=== PATIENT | female | born 1945 | race Caucasian/White ===

== ENCOUNTER → 2016-12-25 | Outpatient (CLI) | payer OTHER, BC | LOC: MOB LAB 10:02 | DX: E11.9 Type 2 diabetes mellitus without complications (principal) | CPT/HCPCS: 36415; 83036 ==

== ENCOUNTER → 2017-04-24 | Outpatient (CLI) | payer OTHER, BC ==
[2017-04-24 15:44] LABS: HEMOGLOBIN A1C 9.69 % (4.2-6.0)
== END ==
LOC: MOB LAB 11:28
DX: E03.9 Hypothyroidism, unspecified (principal); E11.9 Type 2 diabetes mellitus without complications; N20.0 Calculus of kidney; K21.9 Gastro-esophageal reflux disease without esophagitis; E55.9 Vitamin D deficiency, unspecified; E78.5 Hyperlipidemia, unspecified; E66.9 Obesity, unspecified; G47.30 Sleep apnea, unspecified; Z87.440 Personal history of urinary (tract) infections
CPT/HCPCS: 36415; 83036; 84443

== ENCOUNTER 2018-09-17 23:46 | Inpatient (IN) ==
[2018-09-18] MEDS ORDERED: Sodium Chloride 0.9% 1,000 ML PRIMARY IV ONE ×3 (00:25→05:46)
--- NOTE | 2018-09-18 00:46 | EKG ---
[address] [place] [address] Measurements Intervals [place] Rate: 76 P: 257 [place]: 236 QRS: -62 QRSD: 162 T: 5 QT: 449 QTc: 479 Interpretive Statements SINUS RHYTHM WITH FIRST DEGREE AV BLOCK RIGHT BUNDLE BRANCH BLOCK [120+ ms QRS DURATION, UPRIGHT V1, 40+ ms S IN I/aVL/V4/V5/V6] LEFT ANTERIOR FASCICULAR BLOCK [QRS AXIS <= -45, QR IN I, RS IN II] Compared to ECG 08/10/2014 15:39:30 First degree AV block now present Right bundle-branch block now present Left anterior fascicular block now present Right-axis deviation no longer present Intraventricular conduction delay no longer present T-wave abnormality no longer present Possible ischemia no longer present Electronically Signed On 09-18-18 09:43:45 MST by Rafita Rg MD [email or web address]
[2018-09-18 01:16] LABS: BASOPHILS # (AUTO) 0.06 10*3/UL; BASOPHILS % (AUTO) 0.6 % (0-1); EOSINOPHILS # (AUTO) 0.42 10*3/UL; EOSINOPHILS % (AUTO) 4.2 % (0-8); Hematocrit [HCT] 46.9 % (37.0-47.0); Hemoglobin [HGB] 16.1 g/dL (12.0-16.0); LYMPHOCYTES # (AUTO) 2.24 10*3/uL; MEAN CORPUSCULAR HEMOGLOBIN 31.9 PG (27-31); MEAN CORPUSCULAR HGB CONC 34.3 g/dL (33-37); MEAN CORPUSCULAR VOLUME 92.9 FL (81-99); MEAN PLATELET VOLUME 10.4 FL (7.4-12.2); MONOCYTES # (AUTO) 0.56 10*3/UL (0.3-0.8); MONOCYTES % (AUTO) 5.7 % (5-15); NEUTROPHILS # (AUTO) 6.57 10*3/UL; NEUTROPHILS % (AUTO) 66.5 % (50-80); RED BLOOD COUNT 5.05 10^6/uL (4.20-5.40)
[2018-09-18 01:17] LABS: PLATELET MORPHOLOGY COMMENT NORMAL MORPHOLOGY (NORM); RBC MORPHOLOGY COMMENT NORMAL MORPHOLOGY (NORM); WBC MORPHOLOGY COMMENT NORMAL MORPHOLOGY (NORM)
[2018-09-18] MEDS ORDERED: ONDANSETRON 4 MG/2 ML VIAL IVP ONE (01:31)
[2018-09-18 01:32] LABS: BLOOD UREA NITROGEN 38 mg/dL (7-22); BUN/CREATININE RATIO 17.27 (6-20); SERUM ALBUMIN 3.8 g/dL (3.5-4.8)
[2018-09-18] MEDS ORDERED: ONDANSETRON 4 MG/2 ML VIAL ONE (01:39)
[2018-09-18 02:00] LABS: BILIRUBIN,URINE NEGATIVE (NEG); CLARITY,URINE CLOUDY (CLEAR); COLOR,URINE YELLOW (Y); GLUCOSE, URINE (UA) 100 mg/dL (NEG); OCCULT BLOOD,URINE MODERATE (NEG); PH,URINE 5.5 (5.0-8.5); PROTEIN,URINE >300 mg/dl (NEG); UROBILINOGEN,URINE 0.2 EU/dL (0.2)
[2018-09-18 02:01] LABS: URINE SAMPLE TYPE CATH SPECIMEN
[2018-09-18 02:02] LABS: BACTERIA,URINE MANY; WBC,URINE 25-40
[2018-09-18 02:11] LABS: VENOUS PH 7.39 (7.32-7.42)
--- NOTE | 2018-09-18 02:17 | DI ---
EXAM: CT Head Without Intravenous Contrast CLINICAL HISTORY: confusion TECHNIQUE: Axial computed tomography images of the head/brain without intravenous contrast. COMPARISON: 11/08/2013 FINDINGS: Brain: There is no acute intracranial hemorrhage. There is no evidence of acute infarct-no edema or mass effect. There are stable hypodensities scattered throughout the subcortical and periventricular white matter consistent with mild to moderate old small vessel ischemic changes. Ventricles: Unremarkable. No ventriculomegaly. Bones/joints: Unremarkable. No acute fracture. Soft tissues: Unremarkable. Sinuses: Unremarkable as visualized. No acute sinusitis. Mastoid air cells: Unremarkable as visualized. No mastoid effusion. IMPRESSION: No acute intracranial abnormality or significant interval change.
[2018-09-18 02:18] LABS: AMPHETAMINE SCREEN NEGATIVE (NEG); CANNABINOID SCREEN,URINE NEGATIVE (NEG); COCAINE SCREEN NEGATIVE (NEG); METHADONE URINE SCREEN NEGATIVE (NEG); METHAMPHETAMINES SCREEN,URINE NEGATIVE (NEG); OPIATE SCREEN,URINE NEGATIVE (NEG); URINE SPECIFIC GRAVITY - MAN 1.015
--- NOTE | 2018-09-18 02:28 | DI ---
EXAM: XR Chest, 2 Views CLINICAL HISTORY: confusion, cough Physician Notes: Tech Comments: TECHNIQUE: Frontal and lateral views of the chest. COMPARISON: 07/23/2010 FINDINGS: Lungs: The interstitium is diffusely prominent but without evidence of a focal infiltrate/area of consolidation. However, on the lateral view, there is a soft tissue density posteriorly at the mid to lower thorax- question pleural thickening. It measures approximate 12 cm in length and a maximum AP dimension of 2 cm. Pleural space: See above. Heart: Unremarkable. No cardiomegaly. Mediastinum: Unremarkable. Bones/joints: There are moderate degenerative changes of the shoulders. IMPRESSION: There is no evidence of a focal infiltrate or area of consolidation to suggest pneumonia, although viral pneumonia/atypical pneumonia cannot be excluded. On the lateral view, there is soft tissue density along the posterior hemithorax which is of uncertain etiology-possibly pleural thickening. This can be further evaluated with CT scan as clinically indicated.
--- NOTE | 2018-09-18 03:33 | PDOC ---
HPI - History of Present Illness Date of Service: 09/18/18 Time of Service: 03:27 Chief Complaint: Confusion History of Present Illness: This is a 73-year-old female with diabetes mellitus type II, morbid obesity, hypertension, amongst other medical issues, who presents by ambulance here to the emergency room after her found her on a commode at her home confused. She repetitively answers "I don't know" to questions in the emergency room. Labs suggest acute renal failure and probable UTI. The patient's provides the history. He is a very good historian and states that the patient has had significant problems with urinary tract infections in the past. In fact she apparently had a nephrectomy after an abscess developed (perinephric abscess) after the kidney was removed. She still has significant muscle damage from that procedure on the right side. She's had a history of kidney stones as well. The patient gets very confused when she has her urinary tract infections. Patient's notes that the patient got confused very suddenly tonight and she was transferring back and forth from the commode without any set purpose of what she was doing. No fevers. The patient's tried to take the temperature but the patient would not allow it. She has been taking some anti- inflammatories for osteoarthritis. She did not drink very much fluids today. The patient was nonspecific with any questions that I asked and answered "I don't know" and also answered "I got his stay here". She was not oriented to place time or situation. She was oriented to person. She was moving her extremities and her speech was intact and clear. Head CT scan was done in the emergency room it was negative. I did note reviewing her medications that she is on trimethoprim, presumably to help prevent infections. Outside, in the emergency room tonight upon noticing the patient's confusion, no other interventions or exacerbating factors were noted. Past Medical History Medical History: 1. Diabetes mellitus type II. 2. Presumably urinary incontinence on oxybutynin. 3. Morbid obesity. 4. Hypertension. 5. Hypercholesterolemia. 6. Frequent urinary tract infections status post perinephric abscess on the right. 7. Osteoarthritis Surgical History: 1. Kidney stone surgery. 2. Cholecystectomy. 3. Right nephrectomy Pertinent Family History: I cannot obtain this information from the patient due to her altered mental status and confusion Past Social History: Patient does not smoke. She is to drink alcohol but quit markedly after her nephrectomy. She is for over 40 years. 2 children described as healthy. Her states that she has a living well and that she is DO NOT RESUSCITATE. Tobacco Use: Never Smoker In the Past 12 Months, Have Used or Abuse Any of the Following Substance: None Alcohol Use: None Medication / Allergies Home Medications: Home Medications Medication Instructions Recorded Confirmed Type cholecalciferol (vitamin D3) 2,000 2,000 unit PO QDAY #30 cap 06/11/17 09/17/18 History unit capsule atenolol 50 mg tablet 50 mg PO QDAY #90 tab 11/08/17 09/17/18 Rx glipizide 10 mg tablet 10 mg PO BID #180 tab 11/08/17 09/17/18 Rx pravastatin 20 mg tablet 20 mg PO QDAY #90 tab 11/08/17 09/17/18 Rx cholecalciferol (vitamin D3) 50,000 unit PO QDAY #11 cap 11/14/17 09/17/18 Rx 50,000 unit capsule sitagliptin 50 mg-metformin 1,000 1 tab PO BID #60 tab 11/19/17 09/17/18 Rx mg tablet exenatide ER 2 mg/0.65 mL 2 mg SUBCUT Q7D #12 ea 11/20/17 09/17/18 Rx subcutaneous pen injector sitagliptin 50 mg-metformin 1,000 1 tab PO BID #180 tab 11/20/17 09/17/18 Rx mg tablet trimethoprim 100 mg tablet 100 mg PO QDAY #90 tab 02/04/18 09/17/18 Rx levothyroxine 100 mcg tablet 100 mcg PO QD #90 tab 02/05/18 09/17/18 Rx oxybutynin chloride 5 mg tablet 10 mg PO BID PRN #360 tab 02/05/18 09/17/18 Rx Allergies/Adverse Reactions: Allergies Allergy/AdvReac Type Severity Reaction Status Date / Time codeine [Codeine] AdvReac Intermediate VOMITING Verified 09/17/18 23:51 Review of Systems - Review of Systems ROS Unobtainable: Due to Mental Status (I cannot obtain a review systems due to confusion and altered mental status in the setting of urinary tract infection, present on admission, and renal failure.) Exam - Vitals Vital Signs: Vital Signs Temperature 97.6 F Temperature Source Temporal Artery Scan Pulse Rate [Pulse Oximeter] 80 Respiratory Rate 24 Blood Pressure [Left Arm] 163/104 Pulse Ox 91 Height 5 ft 9 in Weight 360 lb - General General Appearance: No Acute Distress, Morbidly Obese Additional General Exam Details: Appears ill, not toxic, belches frequently on exam - Head Head Exam: Normal Inspection, Normocephalic, Atraumatic - ENT ENT Exam: POSITIVE: Mucous Membranes Dry - Neck Neck Exam: Normal Inspection, No Tenderness, No Lymphadenopathy, No Thyromegaly, JVP is not Raised - Respiratory Respiratory Exam: POSITIVE: Clear to Auscultation - Bilaterally, Breathing Non Labored - Cardiovascular Cardiovascular Exam: POSITIVE: RRR, No Murmur, No Clicks, No Gallops, No Rubs, No JVD - GI/Abdominal GI/Abdominal Exam: POSITIVE: Normal Bowel Sounds, Non Tender, Non Distended, Soft - Rectal Rectal Exam: POSITIVE: Deferred - External Exam: POSITIVE: Deferred Additional Exam Details: I'm having the nurses place a Rene catheter. She was incontinent of urine - Extremities Extremities Exam: POSITIVE: No Clubbing Present, No Edema Present, No Cyanosis Present Additional Extremities Exam Details: Has what appeared to be some hammertoe deformities and on her right foot she has what looks like possible blood blister on one toe but it is clean and there is no evidence of any drainage or erythema. Dorsalis pedis pulses are present - Back Back Exam: POSITIVE: No CVA Tenderness Additional Back Exam Details: Has a large bulge on the right side of her flank that her tells me was related to muscle damage at the time of her nephrectomy in the past. - Neurological Neurological Exam: POSITIVE: Alert, No Facial Droop, Speech Intact / Clear, Moves All Extremities Equally, Altered Results - Labs CBC and BMP: 09/18/18 00:50 09/18/18 00:50 Additional Lab Results: Laboratory Results 09/18/18 09/18/18 09/18/18 00:50 00:50 00:50 WBC 9.89 RBC 5.05 Hgb 16.1 H Hct 46.9 MCV 92.9 MCH 31.9 H MCHC 34.3 RDW Std Deviation 44.0 RDW Coeff of Marlen 13.2 Plt Count 244 MPV 10.4 Immature Gran % (Auto) 0.4 Neut % (Auto) 66.5 Lymph % (Auto) 22.6 [place] % (Auto) 5.7 Eos % (Auto) 4.2 Baso % (Auto) 0.6 Immature Gran # (Auto) 0.04 Neut # (Auto) 6.57 Lymph # (Auto) 2.24 [place] # (Auto) 0.56 Eos # (Auto) 0.42 Baso # (Auto) 0.06 WBC Morphology Comment Normal morphology Plt Morphology Comment Normal morphology RBC Morph Comment Normal morphology VBG pH VBG pCO2 VBG HCO3 VBG Base Excess Sodium 135 Potassium 4.7 Chloride 101 Carbon Dioxide 22 L Anion Gap 12 BUN 38 H Creatinine 2.2 H Estimated GFR Tie Presser BUN/Creatinine Ratio 17.27 Glucose 224 H Calculated Osmolality 295.0 H Lactic Acid 1.7 Calcium 9.6 Magnesium 1.7 Total Bilirubin 0.5 AST 21 ALT 21 Alkaline Phosphatase 68 Total Creatine Kinase < 20 L CK-MB (CK-2) Troponin I C-Reactive Protein 0.7 Total Protein 6.7 Albumin 3.8 Globulin 2.9 Albumin/Globulin Ratio 1.30 Ur Collection Type Urine Color Urine Clarity Urine pH Ur Specific [place] U Specif Grav (Refrac) Urine Protein Urine Glucose (UA) Urine Ketones Urine Occult Blood Urine Nitrate Urine Bilirubin Urine Urobilinogen Ur Leukocyte Esterase Urine RBC Urine WBC Ur Squamous Epith Cells Ur Renal Epithelial Cell Urine Crystals Urine Bacteria Urine Casts Urine Mucus Urine Trichomonas Urine Yeast Ur Culture Indicated? Urine Opiates Screen Ur Buprenorphine Ur Oxycodone Screen Urine Methadone Screen Ur Propoxyphene Screen Barbiturate Screen U Tricyclic Antidepress Phencyclidine Screen Amphetamines Screen U Methamphetamines Scrn Benzodiazepines Screen Cocaine Screen U Marijuana (THC) Screen 09/18/18 09/18/18 09/18/18 00:50 00:50 01:55 WBC RBC Hgb Hct MCV MCH MCHC RDW Std Deviation RDW Coeff of [place] Plt Count MPV Immature Gran % (Auto) Neut % (Auto) Lymph % (Auto) [place] % (Auto) Eos % (Auto) Baso % (Auto) Immature Gran # (Auto) Neut # (Auto) Lymph # (Auto) [place] # (Auto) Eos # (Auto) Baso # (Auto) WBC Morphology Comment Plt Morphology Comment RBC Morph Comment VBG pH 7.39 VBG pCO2 36 L VBG HCO3 22 VBG Base Excess -3 L Sodium Potassium Chloride Carbon Dioxide Anion Gap BUN Creatinine Estimated GFR BUN/Creatinine Ratio Glucose Calculated Osmolality Lactic Acid Calcium Magnesium Total Bilirubin AST ALT Alkaline Phosphatase Total Creatine Kinase CK-MB (CK-2) 0.42 Troponin I < 0.012 C-Reactive Protein Total Protein Albumin Globulin Albumin/Globulin Ratio Ur Collection Type Cath specimen Urine Color Yellow Urine Clarity Cloudy A Urine pH 5.5 Ur Specific [place] 1.020 U Specif Grav (Refrac) 1.015 Urine Protein >300 A Urine Glucose (UA) 100 Urine Ketones Trace A Urine Occult Blood Moderate H Urine Nitrate Negative Urine Bilirubin Negative Urine Urobilinogen 0.2 Ur Leukocyte Esterase Moderate Urine RBC 1-3 Urine WBC 25-40 H Ur Squamous Epith Cells None Ur Renal Epithelial Cell None Urine Crystals None Urine Bacteria Many H Urine Casts None Urine Mucus None Urine Trichomonas None Urine Yeast None Ur Culture Indicated? Culture set Urine Opiates Screen Negative Ur Buprenorphine Negative Ur Oxycodone Screen Negative Urine Methadone Screen Negative Ur Propoxyphene Screen Negative Barbiturate Screen Negative U Tricyclic Antidepress Negative Phencyclidine Screen Negative Amphetamines Screen Negative U Methamphetamines Scrn Negative Benzodiazepines Screen Negative Cocaine Screen Negative U Marijuana (THC) Screen Negative - EKG Data -: EKG Interpreted by Me Rate: Normal EKG Shows Normal: Sinus Rhythm - EKG Data EKG Interpretation: Other (Right bundle branch block) - Imaging Status: Image Reviewed by Me (Chest x-ray on my view is negative for pneumonia. Head CT scan does not show evidence of a bleed.) Assessment and Plan - Patient Problems (1) Acute renal failure Current Visit: Yes Status: Acute Code(s): N17.9 - Acute kidney failure, unspecified Qualifiers: Acute renal failure type: unspecified Qualified Code(s): N17.9 - Acute kidney failure, unspecified (2) Altered mental status Current Visit: Yes Status: Acute Code(s): R41.82 - Altered mental status, unspecified Qualifiers: Altered mental status type: disorientation Qualified Code(s): R41.0 - Disorientation, unspecified (3) Urinary tract infection Current Visit: Yes Status: Acute Code(s): N39.0 - Urinary tract infection, site not specified Qualifiers: Urinary tract infection type: acute cystitis Hematuria presence: with hematuria Qualified Code(s): N30.01 - Acute cystitis with hematuria (4) Diabetes mellitus type II, controlled Current Visit: Yes Status: Acute Code(s): E11.9 - Type 2 diabetes mellitus without complications Qualifiers: Diabetes mellitus skilled nursing insulin use: without skilled nursing use Diabetes mellitus complication status: with ophthalmic complications Diabetes mellitus complication detail: with diabetic retinopathy Diabetic retinopathy severity: with unspecified retinopathy severity Diabetes mellitus macular edema: macular edema presence unspecified Laterality: unspecified laterality Qualified Code(s): E11.319 - Type 2 diabetes mellitus with unspecified diabetic retinopathy without macular edema (5) Morbid obesity Current Visit: Yes Status: Acute Code(s): E66.01 - Morbid (severe) obesity due to excess calories (6) History of nephrectomy Current Visit: Yes Status: Acute Code(s): Z90.5 - Acquired absence of kidney (7) Urinary incontinence, mixed Current Visit: Yes Status: Chronic Code(s): N39.46 - Mixed incontinence (8) Benign hypertension Current Visit: Yes Status: Chronic (9) Sleep apnea Current Visit: Yes Status: Chronic Onset Date: 05/05/14 Code(s): G47.30 - Sleep apnea, unspecified Qualifiers: (10) Hyperlipidemia Current Visit: Yes Status: Chronic Onset Date: 05/05/14 Code(s): E78.5 - Hyperlipidemia, unspecified Qualifiers: (11) GERD (gastroesophageal reflux disease) Current Visit: No Status: Resolved Onset Date: 09/25/12 Code(s): K21.9 - Gastro-esophageal reflux disease without esophagitis Qualifiers: Esophagitis presence: esophagitis presence not specified Qualified Code(s): K21.9 - Gastro-esophageal reflux disease without esophagitis - Assessment / Plan Additional Assessment/Plan Details: Admit the patient. Hydrate aggressively with IV fluids in the setting of renal failure, particularly with one kidney. Rocephin IV empirically and culture urine. Check labs in a.m. and this afternoon. Discontinue oxybutynin as this often times can cause confusion in this age range. Also stop trimethoprim. Hold oral antidiabetic medications and use insulin during the hospital stay. Urinary tract infection is present on admission. I'll check electrolytes and kidney function later this afternoon. If the kidney function is still compromised, we may need to look at getting the patient to a taker off, particularly with one kidney present. I also instructed the elizabeth tony's that the patient should not have anti-inflammatories despite her debilitating osteoarthritis as it could lead to kidney failure. She is a very poor candidate for surgery. This will need to be discussed further with the patient during the hospital stay if her confusion improves. I do not think that the patient had a stroke. She does not have any focal findings at this point. We'll see how she responds to initial interventions for urinary tract infection. Sliding scale insulin for now for diabetes. Hold off on oral medications. CT scan of the abdomen and pelvis to look for stones. Get a spot urine sodium and creatinine for fractional excretion of sodium I was able to confirm with that the patient has a living will and that she has stated DO NOT RESUSCITATE should her heart stop. Patient's agreed with plan above.
[2018-09-18] MEDS ORDERED: LIDOCAINE HCL 2 % 10 ML JELLY URO-JECT TOPICAL PRN ×3 (03:59→04:07)
[2018-09-18] MEDS ORDERED: DEXTROSE 50%-WATER SYRINGE 50 ML SYRINGE IVP PRN (04:07)
[2018-09-18] MEDS ORDERED: DEXTROSE 31 GM GEL PO PRN (04:07)
[2018-09-18] MEDS ORDERED: Glucagon Inj Vial 1 MG/ML VIAL IM PRN (04:07)
[2018-09-18] MEDS ORDERED: Insulin Sliding Scale Protocol SUBCUT PRN (04:07)
[2018-09-18] MEDS ORDERED: ACETAMINOPHEN 325 MG TABLET PO PRN (04:07)
[2018-09-18] MEDS ORDERED: DOCUSATE 100 MG CAPSULE PO PRN (04:07)
[2018-09-18] MEDS ORDERED: LIDOCAINE W/ SODIUM BICARB 0.5 ML SYR SUBD PRN (04:07)
[2018-09-18] MEDS: Sodium Chloride 0.9% 1,000 ML PRIMARY IV SCH ×3 (04:33→21:13)
[2018-09-18] MEDS: cefTRIAXone Inj 2 GM in Sodium Chloride 0.9% 100 ML IV SCH (04:36)
--- NOTE | 2018-09-18 05:00 | PDOC ---
Altered Mental Status HPI - General Chief Complaint: Altered Mental Status Stated Complaint: confusion Date Seen by Provider: 09/18/18 Time Seen by Provider: 00:10 Source: POSITIVE: Patient, Spouse, EMS Exam Limitations: POSITIVE: No limitations Nurse's Notes Reviewed & Considered: Yes EMS Report Reviewed & Considered: Verbal - History of Present Illness Initial Comments: The patient is a 73-year-old female who was brought to the emergency room by ambulance. Approximately 1-1/2 hours TELETYPESETTER the patient was in her bedroom and the patient's was in the couple's living room. The heard the patient starting and he went to check on his . She states that she found the patient on a bedside commode. The states that the patient was confused and would answer most questions simply with "I don't know". reports that the patient has had no recent known trauma. He thinks that the has been was in bed and got up to use the bedside commode. Patient has a history of diabetes mellitus and the blood glucose in the field was 184. The patient's also states that the patient had a kidney removed, but he is not sure what the indication for the nephrectomy was. The states that the patient had a similar episode of confusion in the past and at that time the patient was diagnosed with the urinary tract infection and the states that once the urinary tract infection was treated the patient's sensorium returned to normal. states that the patient's condition was normal up until this evening. No known fevers or chills. does state that the patient has had a cough for the last couple days. Body Location Affected: REPORTS: Other (Confusion as above) Timing: REPORTS: Constant Duration: 1-3 hours Severity: Moderate Quality: REPORTS: Other (Patient does not have any apparent pain anywhere) Character of AMS: REPORTS: Confused, Trouble Concentrating Context: REPORTS: Other (As above) FSBS TELETYPESETTER (Result in comment): Yes (184) Patient Normals: REPORTS: Alert, Oriented x3 Associated Symptoms: DENIES: Recent Illness, Fever, Chills, Chest Pain, Neck Pain, Back Pain, Difficulty Breathing, Abdominal Pain, Nausea, Vomiting, New Onset Weakness, Decreas. Ability to Stand, Decreased Ability to Walk, Multiple Falls, Off Balance, Fainting, Dizziness, Involuntary Movements, Seizure, Headach e, Other Similar Symptoms Previously: Yes (1 similar episode in the past, thought to be due to a urinary tract infecti) Recent Care Received: REPORTS: Denies Any Prior Injuries Related to Current Complaint?: No - Patient Home Medications Home Medications: Home Medications cholecalciferol (vitamin D3) 2,000 unit capsule 2,000 unit PO QDAY #30 cap 06/11/17 atenolol 50 mg tablet 50 mg PO QDAY #90 tab 11/08/17 glipizide 10 mg tablet 10 mg PO BID #180 tab 11/08/17 pravastatin 20 mg tablet 20 mg PO QDAY #90 tab 11/08/17 cholecalciferol (vitamin D3) 50,000 unit capsule 50,000 unit PO QDAY #11 cap 11/14/17 sitagliptin 50 mg-metformin 1,000 mg tablet 1 tab PO BID #60 tab 11/19/17 exenatide ER 2 mg/0.65 mL subcutaneous pen injector 2 mg SUBCUT Q7D #12 ea 11/20/17 sitagliptin 50 mg-metformin 1,000 mg tablet 1 tab PO BID #180 tab 11/20/17 trimethoprim 100 mg tablet 100 mg PO QDAY #90 tab 02/04/18 levothyroxine 100 mcg tablet 100 mcg PO QD #90 tab 02/05/18 oxybutynin chloride 5 mg tablet 10 mg PO BID PRN #360 tab 02/05/18 - Patient Allergies Allergies/Adverse Reactions: Allergies Allergy/AdvReac Type Severity Reaction Status Date / Time codeine [Codeine] AdvReac Intermediate VOMITING Verified 09/17/18 23:51 Past Medical History - heen HEENT History: Denies History Additional HEENT History: near sighted, wears glasses Cardiovascular History: Hyperlipidemia, Other (please comment) Additional Cardiovasular History: TACHYCARDIA Respiratory History: Denies History Gastrointestinal History: GERD Genitourinary History: Recurrent UTI Additional Genitourinary History: PATIENT STATES SHE HAD A RIGHT NEPHRECTOMY FOR "AN INFECTION AND ABSCESS" RIGHT KIDNEY Endocrine History: Type 2 Diabetes (oral) Musculoskeletal History: Arthritis Additional Musculoskeletal History: bilat knees Neurological History: Denies History Blood Disorders: Denies History Psychiatric History: Denies History History of Sexually Transmitted Diseases: No Cancer History: Denies History In Past Year Been Physically Harmed or Verbally Threatened: No History of MDRO: Yes Other Type of MDRO: NEG SWAB IN OCT History of Other Communicable Diseases: No Tobacco Use: Never Smoker Alcohol Use: None In the Past 12 Months, Have Used or Abuse Any Substance: None Previous Surgical History: Yes Type / Date of Surgery: KIDNEY Anesthesia Reactions: No Malignant Hyperthermia: No Significant Family History: No pertinent family hx Past Medical History Reviewed: Reviewed - No Changes ROS - Limitations ROS Limitations: Clinical Condition, Other (please comment) (Collateral information with regard to review of systems and past medical history obtained from patient's ) Constitution: REPORTS: Denies Symptoms Cardiovascular: REPORTS: Denies Cardiac Symptoms Respiratory: REPORTS: Cough Non Productive Neurological: REPORTS: Denies Neuro Symptoms Gastrointestinal: REPORTS: Denies GI Symptoms Endocrine: REPORTS: Denies Symptoms Musculoskeletal: REPORTS: Denies MS Symptoms Genitourinary: REPORTS: Denies Symptoms Eyes: REPORTS: Denies Symptoms ENT: REPORTS: Denies Symptoms Skin: REPORTS: Denies Skin Symptoms Lympathic: REPORTS: Denies Lympathic Symptoms Immunologic: POSITIVE: Denies Symptoms Psychiatric: POSITIVE: Denies Psych Symptoms Altered Mental Physical Exam - General Appearance General Appearance: POSITIVE: Cooperative, No Acute Distress, No Evidence of Trauma. NEGATIVE: Alert (Patient is alert to date. She cannot name the president, nor can she state where she is at. When asked questions, the patient's answers usually "I don't know ". She will perform some simple comma nds, but not uniformly. She has difficulty understanding what I ask her to squeeze my fingers. She also has difficulty understanding what I want to do what I tell her to close her eyes tightly as part of a cranial nerve examination.) - HEENT HEENT: POSITIVE: Head Inspection Nml, Eyes Inspection Nml, Ears Inspection Nml, Nose Inspection Nml, Oral/Dental Inspect. Nml, Pharynx Inspect. Nml, PERRL - Pupil Size Pupil Size: 3 mm: Bilateral (PERRLA) - Neuro/Psych Neurological: POSITIVE: Confusion, Weakness (Possibly some pronator drift on the left, but patient's inability to understand what I am trying to ask her to do impairs the validity of this test.) Cranial Nerves: POSITIVE: Normal As Tested, No Evidence of Acute CVA Cerebellar: POSITIVE: Normal As Tested Peripheral Exam: POSITIVE: Weakness (Possibly left arm). NEGATIVE: No Motor Deficits (Possibly some left pronator drift) - Neck Neck: POSITIVE: Supple, Non Tender - Respiratory Respiratory: POSITIVE: No Respiratory Distress, Breath Sounds Normal - Cardiovascular CVS: POSITIVE: Regular Rate and Rhythm, Heart Sounds Normal Peripheral Pulses: Radial (R): 2+, Radial (L): 2+ - Abdomen Abdomen: Soft: (All Quadrants), Normal Bowel Sounds: (All Quadrants), Denies Tenderness: (All Quadrants), No Splenomegaly: (All Quadrants), No Hepatomegaly: (All Quadrants), No Guarding: (All Quadrants), No Rebound: (All Quadrants), No Palpable Pulse: (All Quadrants), No Palpabale Mass: (All Quadrants), No Distention: (All Quadrants), No Rigidity: (All Quadrants) - Skin Skin: POSITIVE: Normal for Race, No Rash, Warm, Dry - Extremities Extremity: Non-Tender: (All Extremities), Normal ROM: (All Extremities), Normal Inspection: (All Extremities) Additional Extremities Details: Patient has chronic knee pain. Altered Mental Status - Results Reviewed By Me Xrays/CTs/US Reviewed: Yes Discussed with Radiologist: Yes (CT scan head without contrast read as normal by radiologist. Chest x-ray shows no infiltrate.) Lab Results Reviewed by Me: Yes (BUN 38, creatinine 2.2; on 11/08/2017 BUN was 17 and creatinine is 1.1) CBC and BMP: 09/18/18 00:50 09/18/18 00:50 Lab Results:: Laboratory Results 09/18/18 09/18/18 09/18/18 00:50 00:50 00:50 WBC 9.89 RBC 5.05 Hgb 16.1 H Hct 46.9 MCV 92.9 MCH 31.9 H MCHC 34.3 RDW Std Deviation 44.0 RDW Coeff of Marlen 13.2 Plt Count 244 MPV 10.4 Immature Gran % (Auto) 0.4 Neut % (Auto) 66.5 Lymph % (Auto) 22.6 [place] % (Auto) 5.7 Eos % (Auto) 4.2 Baso % (Auto) 0.6 Immature Gran # (Auto) 0.04 Neut # (Auto) 6.57 Lymph # (Auto) 2.24 [place] # (Auto) 0.56 Eos # (Auto) 0.42 Baso # (Auto) 0.06 WBC Morphology Comment Normal morphology Plt Morphology Comment Normal morphology RBC Morph Comment Normal morphology VBG pH VBG pCO2 VBG HCO3 VBG Base Excess Sodium 135 Potassium 4.7 Chloride 101 Carbon Dioxide 22 L Anion Gap 12 BUN 38 H Creatinine 2.2 H Estimated GFR Payroll Consultant BUN/Creatinine Ratio 17.27 Glucose 224 H Calculated Osmolality 295.0 H Lactic Acid 1.7 Calcium 9.6 Magnesium 1.7 Total Bilirubin 0.5 AST 21 ALT 21 Alkaline Phosphatase 68 Total Creatine Kinase < 20 L CK-MB (CK-2) Troponin I C-Reactive Protein 0.7 Total Protein 6.7 Albumin 3.8 Globulin 2.9 Albumin/Globulin Ratio 1.30 Ur Collection Type Urine Color Urine Clarity Urine pH Ur Specific [place] U Specif Grav (Refrac) Urine Protein Urine Glucose (UA) Urine Ketones Urine Occult Blood Urine Nitrate Urine Bilirubin Urine Urobilinogen Ur Leukocyte Esterase Urine RBC Urine WBC Ur Squamous Epith Cells Ur Renal Epithelial Cell Urine Crystals Urine Bacteria Urine Casts Urine Mucus Urine Trichomonas Urine Yeast Ur Culture Indicated? Urine Opiates Screen Ur Buprenorphine Ur Oxycodone Screen Urine Methadone Screen Ur Propoxyphene Screen Barbiturate Screen U Tricyclic Antidepress Phencyclidine Screen Amphetamines Screen U Methamphetamines Scrn Benzodiazepines Screen Cocaine Screen U Marijuana (THC) Screen 09/18/18 09/18/18 09/18/18 00:50 00:50 01:55 WBC RBC Hgb Hct MCV MCH MCHC RDW Std Deviation RDW Coeff of Marlen Plt Count MPV Immature Gran % (Auto) Neut % (Auto) Lymph % (Auto) [place] % (Auto) Eos % (Auto) Baso % (Auto) Immature Gran # (Auto) Neut # (Auto) Lymph # (Auto) [place] # (Auto) Eos # (Auto) Baso # (Auto) WBC Morphology Comment Plt Morphology Comment RBC Morph Comment VBG pH 7.39 VBG pCO2 36 L VBG HCO3 22 VBG Base Excess -3 L Sodium Potassium Chloride Carbon Dioxide Anion Gap BUN Creatinine Estimated GFR BUN/Creatinine Ratio Glucose Calculated Osmolality Lactic Acid Calcium Magnesium Total Bilirubin AST ALT Alkaline Phosphatase Total Creatine Kinase CK-MB (CK-2) 0.42 Troponin I < 0.012 C-Reactive Protein Total Protein Albumin Globulin Albumin/Globulin Ratio Ur Collection Type Cath specimen Urine Color Yellow Urine Clarity Cloudy A Urine pH 5.5 Ur Specific [place] 1.020 U Specif Grav (Refrac) 1.015 Urine Protein >300 A Urine Glucose (UA) 100 Urine Ketones Trace A Urine Occult Blood Moderate H Urine Nitrate Negative Urine Bilirubin Negative Urine Urobilinogen 0.2 Ur Leukocyte Esterase Moderate Urine RBC 1-3 Urine WBC 25-40 H Ur Squamous Epith Cells None Ur Renal Epithelial Cell None Urine Crystals None Urine Bacteria Many H Urine Casts None Urine Mucus None Urine Trichomonas None Urine Yeast None Ur Culture Indicated? Culture set Urine Opiates Screen Negative Ur Buprenorphine Negative Ur Oxycodone Screen Negative Urine Methadone Screen Negative Ur Propoxyphene Screen Negative Barbiturate Screen Negative U Tricyclic Antidepress Negative Phencyclidine Screen Negative Amphetamines Screen Negative U Methamphetamines Scrn Negative Benzodiazepines Screen Negative Cocaine Screen Negative U Marijuana (THC) Screen Negative EKG Interpreted/Reviewed By Me:: Yes (sinus rhythm; left anterior fascicular block and right bundle branch block) EKG Interpretation:: POSITIVE: Normal Sinus Rhythm, Normal Rate. NEGATIVE: Normal Intervals (Interventricular conduction delay), Normal [place] (Right bundle- branch block and left anterior fascicular block), Normal QRS (Left bundle branch block and anterior fascicular block), Normal ST/T - Patient's Progress Pain Medication Addressed: POSITIVE: Not Applicable School/Work Release Addressed: POSITIVE: Not Applicable Re-Examine Time:: 02:35 Re-Examine Comment: Condition unchanged. Blood cultures are drawn. Advised the patient's that I'm not completely sure why she is confused at this time. Catheterized urine was compatible with urinary tract infection, and this may be contributing. Case discussed with Dr. Andrew, hospitalist, and patient is admitted for further evaluation and treatment. Status: POSITIVE: Unchanged, Re-Examined - Consult Consult (If Yes, Name of Consulting MD & Time Called): Yes (Dr. Andrew, [facility], [id number]) Consulting MD will see pt:: POSITIVE: [facility] [place] Admit Counseled: POSITIVE: Patient, Family (), RE: Lab Results, RE: Radiology Results, RE: DX, RE: Need for F/U Patient Care Time - Estimated PCT Patient Care Time (In Minutes): 65 Vital Signs - Recent Vital Signs Vital Signs: Vital Signs (Last 8 hours) Temp Pulse Resp BP Pulse Ox 09/18/18 00:10 97.6 F 80 24 163/104 91 - VS Reviewed Vital Signs Reviewed: Yes Discharge Clinical Impression: Confusion, Diabetes mellitus Urinary tract infection Qualifiers: Urinary tract infection type: acute cystitis Hematuria presence: with hematuria Qualified Code(s): N30.01 - Acute cystitis with hematuria Discharge Disposition: Admit to Inpatient Condition: Good Date Decision to Admit to Inpatient: 09/18/18 Time Decision to Admit to Inpatient: 02:15
[2018-09-18] MEDS: HEPARIN 5000 UNIT/1 ML SUBCUT SCH ×3 (05:20→21:13)
[2018-09-18] MEDS ORDERED: Sodium Chloride 0.9% 1,000 ML PRIMARY IV SCH (05:36)
[2018-09-18] MEDS: HYDRALAZINE 20 MG/1 ML IVP PRN (05:56)
--- NOTE | 2018-09-18 07:58 | DI ---
CT Abdomen/Pelvis WO Contrast,09/18/2018 4:07 AM: Clinical History: Urinary tract infection and renal failure. Question stone. Previous Exam: 07/25/14 Findings: Multiple helically acquired CT images are obtained through the abdomen and pelvis without contrast, a nd demonstrate a stable right lateral hernia containing multiple loops of large and small bowel. There is a small right pleural effusion and a very small left pleural effusion. There is some mild in creased interstitial markings. The liver, spleen, pancreas and left kidney are unremarkable. The uterus is normal. The anterior abdo sarah wall and subcutaneous fat is unremarkable. There is a Rene catheter within the urinary bladder. A few peripheral vascular calcifications are seen. Diffuse degenerative changes of the spine are note d. There is diffuse osteopenia. Degenerative changes of the hips are noted as well. There is no evide nce of hydronephrosis of the solitary left kidney. Impression: No significant change from the prior exam.
[2018-09-18] MEDS ORDERED: CHOLECALCIFEROL 1000 IU TABLET PO SCH (09:00)
[2018-09-18] MEDS: CHOLECALCIFEROL 1000 IU TABLET PO SCH (10:06)
[2018-09-18] MEDS: Insulin Lispro Flexpen 300 UNIT/3 ML INSULN.PEN SUBCUT SCH ×4 (10:06→20:18)
[2018-09-18] MEDS: ATENOLOL 50 MG TABLET PO SCH (10:06)
[2018-09-18 14:46] LABS: BLOOD UREA NITROGEN 30 mg/dL (7-22); BUN/CREATININE RATIO 16.66 (6-20)
[2018-09-18] MEDS: Pravastatin Tab 20 MG TAB PO SCH (21:13)
[2018-09-19] MEDS: HEPARIN 5000 UNIT/1 ML SUBCUT SCH ×3 (04:54→20:19)
[2018-09-19] MEDS: cefTRIAXone Inj 2 GM in Sodium Chloride 0.9% 100 ML IV SCH (04:54)
[2018-09-19] MEDS: Sodium Chloride 0.9% 1,000 ML PRIMARY IV SCH ×3 (04:54→22:16)
[2018-09-19] MEDS: LEVOTHYROXINE 100 MCG TABLET PO SCH (04:55)
[2018-09-19 05:27] LABS: BASOPHILS # (AUTO) 0.06 10*3/UL; BASOPHILS % (AUTO) 0.7 % (0-1); EOSINOPHILS # (AUTO) 0.55 10*3/UL; EOSINOPHILS % (AUTO) 6.3 % (0-8); Hematocrit [HCT] 44.7 % (37.0-47.0); Hemoglobin [HGB] 14.8 g/dL (12.0-16.0); LYMPHOCYTES # (AUTO) 2.69 10*3/uL; MEAN CORPUSCULAR HEMOGLOBIN 31.4 PG (27-31); MEAN CORPUSCULAR HGB CONC 33.1 g/dL (33-37); MEAN CORPUSCULAR VOLUME 94.9 FL (81-99); MEAN PLATELET VOLUME 10.1 FL (7.4-12.2); MONOCYTES # (AUTO) 0.73 10*3/UL (0.3-0.8); MONOCYTES % (AUTO) 8.4 % (5-15); NEUTROPHILS # (AUTO) 4.64 10*3/UL; NEUTROPHILS % (AUTO) 53.4 % (50-80); RED BLOOD COUNT 4.71 10^6/uL (4.20-5.40)
[2018-09-19 05:53] LABS: BLOOD UREA NITROGEN 24 mg/dL (7-22)
[2018-09-19 06:00] LABS: PLATELET MORPHOLOGY COMMENT NORMAL MORPHOLOGY (NORM); RBC MORPHOLOGY COMMENT NORMAL MORPHOLOGY (NORM); WBC MORPHOLOGY COMMENT NORMAL MORPHOLOGY (NORM)
[2018-09-19] MEDS: Insulin Lispro Flexpen 300 UNIT/3 ML INSULN.PEN SUBCUT SCH ×4 (08:26→21:48)
[2018-09-19] MEDS: ATENOLOL 50 MG TABLET PO SCH (09:39)
[2018-09-19] MEDS: CHOLECALCIFEROL 1000 IU TABLET PO SCH (09:39)
--- NOTE | 2018-09-19 10:20 | PDOC(PROG) ---
Interval History: Patient feels much better in the room is not confused today. Denies chest pain nausea or vomiting Objective : Data - Labs CBC and BMP: 09/19/18 04:50 09/19/18 04:50 Objective : Exam - General General Appearance: No Acute Distress, Cooperative - Respiratory Respiratory Exam: Clear to Auscultation - Bilaterally, Breathing Non Labored, Normal To Percussion, Normal to Percussion and Palpation - Cardiovascular Cardiovascular Exam: RRR, No Murmur, No Clicks, No Gallops, No Rubs, PMI Non- Displaced - GI/Abdominal GI/Abdominal Exam: Normal Bowel Sounds, Non Tender, Non Distended, Soft, No Masses, No Hepatomegaly, No Splenomegaly, No Organomegaly - Extremities Extremities Exam: No Clubbing Present, No Edema Present, No Cyanosis Present Assessment and Plan - Patient Problems (1) Benign hypertension Current Visit: Yes Status: Chronic (2) GERD (gastroesophageal reflux disease) Current Visit: No Status: Resolved Onset Date: 09/25/12 Code(s): K21.9 - Gastro-esophageal reflux disease without esophagitis Qualifiers: Esophagitis presence: esophagitis presence not specified Qualified Code(s): K21.9 - Gastro-esophageal reflux disease without esophagitis (3) Hyperlipidemia Current Visit: Yes Status: Chronic Onset Date: 05/05/14 Code(s): E78.5 - Hyperlipidemia, unspecified Qualifiers: (4) Sleep apnea Current Visit: Yes Status: Chronic Onset Date: 05/05/14 Code(s): G47.30 - Sleep apnea, unspecified Qualifiers: (5) Urinary incontinence, mixed Current Visit: Yes Status: Chronic Code(s): N39.46 - Mixed incontinence (6) Acute renal failure Current Visit: Yes Status: Acute Code(s): N17.9 - Acute kidney failure, unspecified Qualifiers: Acute renal failure type: unspecified Qualified Code(s): N17.9 - Acute kidney failure, unspecified (7) Diabetes mellitus type II, controlled Current Visit: Yes Status: Acute Code(s): E11.9 - Type 2 diabetes mellitus without complications Qualifiers: Diabetes mellitus detention insulin use: without intermediate accountant use Diabetes mellitus complication status: with ophthalmic complications Diabetes mellitus complication detail: with diabetic retinopathy Diabetic retinopathy severity: with unspecified retinopathy severity Diabetes mellitus macular edema: macular edema presence unspecified Laterality: unspecified laterality Qualified Code(s): E11.319 - Type 2 diabetes mellitus with unspecified diabetic retinopathy without macular edema (8) Morbid obesity Current Visit: Yes Status: Acute Code(s): E66.01 - Morbid (severe) obesity due to excess calories (9) History of nephrectomy Current Visit: Yes Status: Acute Code(s): Z90.5 - Acquired absence of kidney (10) Altered mental status Current Visit: Yes Status: Acute Code(s): R41.82 - Altered mental status, unspecified Qualifiers: Altered mental status type: disorientation Qualified Code(s): R41.0 - Di sorientation, unspecified (11) Urinary tract infection Current Visit: Yes Status: Acute Code(s): N39.0 - Urinary tract infection, site not specified Qualifiers: Urinary tract infection type: acute cystitis Hematuria presence: with hematuria Qualified Code(s): N30.01 - Acute cystitis with hematuria - Assessment / Plan Additional Assessment/Plan Details: #1 acute kidney injury patient has only one kidney, most likely prerenal continue hydration, gram-negative rods on UTI Dr. Andrew discussed the case with nephrology in [place] he recommended that if her renal function continues to deteriorate patient needs to be stable and transferred to [facility] #2 UTI continue IV Rocephin #3 diabetes hold antidiabetic medication continue with insulin while hospitalize d
[2018-09-19] MEDS: HYDRALAZINE 20 MG/1 ML IVP PRN (16:14)
[2018-09-19] MEDS ORDERED: CloNIDine Tab 0.1 MG TABLET PO ONE (16:54)
[2018-09-19] MEDS: Pravastatin Tab 20 MG TAB PO SCH (20:10)
[2018-09-20] MEDS: cefTRIAXone Inj 2 GM in Sodium Chloride 0.9% 100 ML IV SCH (04:46)
[2018-09-20] MEDS: Sodium Chloride 0.9% 1,000 ML PRIMARY IV SCH (04:46)
[2018-09-20] MEDS: HEPARIN 5000 UNIT/1 ML SUBCUT SCH ×3 (04:46→20:53)
[2018-09-20] MEDS: LEVOTHYROXINE 100 MCG TABLET PO SCH (04:46)
[2018-09-20 06:08] LABS: BLOOD UREA NITROGEN 16 mg/dL (7-22); BUN/CREATININE RATIO 13.33 (6-20); SERUM ALBUMIN 3.2 g/dL (3.5-4.8)
[2018-09-20] MEDS: Insulin Lispro Flexpen 300 UNIT/3 ML INSULN.PEN SUBCUT SCH ×4 (08:25→20:53)
[2018-09-20] MEDS: POTASSIUM CHLORIDE 20 MEQ TAB PO SCH ×2 (08:38→15:39)
[2018-09-20] MEDS: CHOLECALCIFEROL 1000 IU TABLET PO SCH (08:38)
[2018-09-20] MEDS: ATENOLOL 50 MG TABLET PO SCH (08:38)
[2018-09-20] MEDS: HYDRALAZINE 10 MG TABLET PO SCH ×3 (08:39→20:53)
--- NOTE | 2018-09-20 10:17 | PDOC(PROG) ---
Interval History: Patient is doing much better not confused stable back to her normal self no chest pain nausea vomiting Objective : Data - Labs CBC and BMP: 09/19/18 04:50 09/20/18 05:05 Objective : Exam - General General Appearance: Cooperative - Respiratory Respiratory Exam: Clear to Auscultation - Bilaterally, Breathing Non Labored, Normal To Percussion, Normal to Percussion and Palpation - Cardiovascular Cardiovascular Exam: RRR, No Murmur, No Clicks, No Gallops, No Rubs, PMI Non- Displaced - GI/Abdominal GI/Abdominal Exam: Normal Bowel Sounds, Non Tender, Non Distended, Soft, No Masses, No Hepatomegaly, No Splenomegaly, No Organomegaly - Extremities Extremities Exam: No Clubbing Present, No Edema Present Assessment and Plan - Patient Problems (1) Urinary tract infection Current Visit: Yes Status: Acute Comment: Continue IV antibiotics we'll switch over to oral tomorrow E coli and growing in the culture white count improved blood cultures are negative for 48 hours Code(s): N39.0 - Urinary tract infection, site not specified Qualifiers: Urinary tract infection type: acute cystitis Hematuria presence: with hematuria Qualified Code(s): N30.01 - Acute cystitis with hematuria (2) Benign hypertension Current Visit: Yes Status: Chronic Comment: Uncontrolled I did add Norvasc 10 mg yesterday. Blood pressure still elevated will add hydralazine 10 mg 3 times a day because of patient has one kidney was in prerenal as a tenia now kidney function is back to normal (3) Hyperlipidemia Current Visit: Yes Status: Chronic Onset Date: 05/05/14 Code(s): E78.5 - Hyperlipidemia, unspecified Qualifiers: (4) Sleep apnea Current Visit: Yes Status: Chronic Onset Date: 05/05/14 Code(s): G47.30 - Sleep apnea, unspecified Qualifiers: (5) Urinary incontinence, mixed Current Visit: Yes Status: Chronic Code(s): N39.46 - Mixed incontinence (6) Acute renal failure Current Visit: Yes Status: Acute Comment: Resolved Code(s): N17.9 - Acute kidney failure, unspecified Qualifiers: Acute renal failure type: unspecified Qualified Code(s): N17.9 - Acute kidney failure, unspecified (7) Diabetes mellitus type II, controlled Current Visit: Yes Status: Acute Code(s): E11.9 - Type 2 diabetes mellitus without complications Qualifiers: Diabetes mellitus penitentiary insulin use: without penitentiary use Diabetes mellitus complication status: with ophthalmic complications Diabetes mellitus complication detail: with diabetic retinopathy Diabetic retinopathy severity: with unspecified retinopathy severity Diabetes mellitus macular edema: macular edema presence unspecified Laterality: unspecified laterality Qualified Code(s): E11.319 - Type 2 diabetes mellitus with unspecified diabetic retinopathy without macular edema (8) Morbid obesity Current Visit: Yes Status: Acute Code(s): E66.01 - Morbid (severe) obesity due to excess calories (9) History of nephrectomy Current Visit: Yes Status: Acute Code(s): Z90.5 - Acquired absence of kidney (10) Altered mental status Current Visit: Yes Status: Acute Comment: Resolved Code(s): R41.82 - Altered mental status, unspecified Qualifiers: Altered mental status type: disorientation Qualified Code(s): R41.0 - Disorientation, unspecified
[2018-09-20] MEDS: ONDANSETRON 4 MG/2 ML VIAL IVP PRN ×3 (11:24→21:38)
--- NOTE | 2018-09-20 11:44 | PT.PROG ---
Progress Note Progress Note: S. pt was very tired and claimed she had a upset stomach. She did not feel up to therapy today. O. pt was convinced to do some room activities and sit up so that she could be more awake and active, pneumonia prevention and to help strengthen her. She transferred herself with SBA from the bed to her w/c. w/c needed brought within reaching distance and help for stability. pt then was taken to the room chair, refusing the arm chair, and transferred from the w/c to the room chair. Nursing was visited with about placing a chair alarm on the pt and her spouse was in the room. A. pt was having the dry heaves and was given an emisis bag. She seemed confused at times and asked where she was and also what was the balloon in her room. She was confident the nursing staff told her she was going home tomorrow but the staff was unable to confirm this absolutely at that time. The pt is concerning when she transfers but is unwilling to allow a gait belt or assistance other than holding the chairs to make sure they don't slip. She would benefit from continued therapy at this time for strengthening and increased activity. P. cont POC [employer] CLERK
[2018-09-20] MEDS: CALCIUM CARBONATE 500 MG (TUMS) CHEWABLE TABLET PO PRN (19:50)
[2018-09-20] MEDS: Pravastatin Tab 20 MG TAB PO SCH (20:53)
[2018-09-21] MEDS: CALCIUM CARBONATE 500 MG (TUMS) CHEWABLE TABLET PO PRN (01:16)
[2018-09-21 03:38] VITALS: RESP 20
[2018-09-21] MEDS: cefTRIAXone Inj 2 GM in Sodium Chloride 0.9% 100 ML IV SCH (04:35)
[2018-09-21] MEDS: LEVOTHYROXINE 100 MCG TABLET PO SCH (04:35)
[2018-09-21] MEDS: HEPARIN 5000 UNIT/1 ML SUBCUT SCH (04:35)
[2018-09-21 04:54] LABS: BASOPHILS # (AUTO) 0.07 10*3/UL; BASOPHILS % (AUTO) 0.7 % (0-1); EOSINOPHILS # (AUTO) 0.45 10*3/UL; EOSINOPHILS % (AUTO) 4.4 % (0-8); Hematocrit [HCT] 45.8 % (37.0-47.0); LYMPHOCYTES # (AUTO) 3.37 10*3/uL; MEAN CORPUSCULAR HEMOGLOBIN 32.1 PG (27-31); MEAN CORPUSCULAR HGB CONC 34.9 g/dL (33-37); MEAN CORPUSCULAR VOLUME 91.8 FL (81-99); MEAN PLATELET VOLUME 9.9 FL (7.4-12.2); MONOCYTES # (AUTO) 0.81 10*3/UL (0.3-0.8); MONOCYTES % (AUTO) 7.9 % (5-15); NEUTROPHILS # (AUTO) 5.51 10*3/UL; NEUTROPHILS % (AUTO) 53.7 % (50-80); RED BLOOD COUNT 4.99 10^6/uL (4.20-5.40)
[2018-09-21 05:18] LABS: BLOOD UREA NITROGEN 18 mg/dL (7-22); BUN/CREATININE RATIO 13.84 (6-20); SERUM ALBUMIN 3.3 g/dL (3.5-4.8)
[2018-09-21 05:40] LABS: PLATELET MORPHOLOGY COMMENT NORMAL MORPHOLOGY (NORM); RBC MORPHOLOGY COMMENT NORMAL MORPHOLOGY (NORM); WBC MORPHOLOGY COMMENT NORMAL MORPHOLOGY (NORM)
[2018-09-21] MEDS: Insulin Lispro Flexpen 300 UNIT/3 ML INSULN.PEN SUBCUT SCH (07:30)
[2018-09-21] MEDS ORDERED: Sodium Chloride 0.9% 1,000 ML PRIMARY IV ONE (07:55)
[2018-09-21] MEDS: CHOLECALCIFEROL 1000 IU TABLET PO SCH (08:53)
[2018-09-21] MEDS: POTASSIUM CHLORIDE 20 MEQ TAB PO SCH (08:54)
[2018-09-21] MEDS: ATENOLOL 50 MG TABLET PO SCH (08:54)
[2018-09-21] MEDS: HYDRALAZINE 10 MG TABLET PO SCH (08:54)
[2018-09-21] MEDS ORDERED: Amoxicill/Clav 875/125mg Tab 1 TAB TAB PO SCH (09:00)
[2018-09-21 09:18] VITALS: BP 148/58; TEMP 97.4; O2SAT 93
--- NOTE | 2018-09-21 10:04 | DCSUMMARY ---
Hospitalization Summary Hospital Course: Final Discharge Diagnosis: Current Visit Problems Problem Status Onset Code Acute renal failure Acute N17.9 Diabetes mellitus type II, controlled Acute E11.9 Morbid obesity Acute E66.01 History of nephrectomy Acute Z90.5 Altered mental status Acute R41.82 Urinary tract infection Acute N39.0 Confusion Acute R41.0 Diabetes mellitus Acute E11.9 Urinary incontinence, mixed Chronic N39.46 Benign hypertension Chronic Sleep apnea Chronic 05/05/14 G47.30 Hyperlipidemia Chronic 05/05/14 E78.5 Diagnostic Data, Laboratory Data, and Procedures of Signifigance: CBC and BMP 09/21/18 04:42 09/21/18 04:42 Laboratory Results 09/21/18 09/21/18 04:42 04:42 WBC 10.26 RBC 4.99 Hgb 16.0 Hct 45.8 MCV 91.8 MCH 32.1 H MCHC 34.9 RDW Std Deviation 44.4 RDW Coeff of Marlen 13.4 Plt Count 273 MPV 9.9 Immature Gran % (Auto) 0.5 Neut % (Auto) 53.7 Lymph % (Auto) 32.8 [place] % (Auto) 7.9 Eos % (Auto) 4.4 Baso % (Auto) 0.7 Immature Gran # (Auto) 0.05 Neut # (Auto) 5.51 Lymph # (Auto) 3.37 [place] # (Auto) 0.81 H Eos # (Auto) 0.45 Baso # (Auto) 0.07 WBC Morphology Comment Normal morphology Plt Morphology Comment Normal morphology RBC Morph Comment Normal morphology Sodium 137 Potassium 4.4 Chloride 107 Carbon Dioxide 22 L Anion Gap 8 BUN 18 Creatinine 1.3 H Estimated GFR Languages And Literature Instructor BUN/Creatinine Ratio 13.84 Glucose 149 H Calculated Osmolality 288.0 Calcium 9.5 Total Bilirubin 0.5 AST 25 ALT 30 Alkaline Phosphatase 56 Total Protein 5.9 L Albumin 3.3 L Globulin 2.6 Albumin/Globulin Ratio 1.20 L History and Physical pertinent to Admission: Past Medical History Medical History: 1. Diabetes mellitus type II. 2. Presumably urinary incontinence on oxybutynin. 3. Morbid obesity. 4. Hypertension. 5. Hypercholesterolemia. 6. Frequent urinary tract infections status post perinephric abscess on the right. 7. Osteoarthritis Surgical History: 1. Kidney stone surgery. 2. Cholecystectomy. 3. Right nephrectomy Pertinent Family History: I cannot obtain this information from the patient due to her altered mental status and confusion Past Social History: Patient does not smoke. She is to drink alcohol but quit markedly after her nephrectomy. She is for over 40 years. 2 children described as healthy. Her states that she has a living well and that she is DO NOT RESUSCITATE. Tobacco Use: Never Smoker Course of Hospitalization: This very nice 73-year-old female with past medical history significant for type II diabetes and morbid obesity and uncontrolled hypertension please see past medical history above was admitted for some confusion and was found to have acute renal failure and UTI and uncontrolled blood pressure she did also have a history of nephrectomy in the past. Patient was treated with IV ceftriaxone and IV fluids her renal function normalized her white blood cell count normalized cultures grew Escherichia coli. Patient is back to her normal self she did do a few days of physical therapy and today I gave her the option if she wanted to go home or to stay an extra day if she didn't feel quite ready to go home and she opted that the the patient wanted to be discharged home. I did call in prescriptions for Augmentin 875 twice a day for 7 more days, also had blood pressure now is better controlled with Norvasc 10 mg and I opted for hydralazine 10 mg 3 times a day because she has one kidney. Before going home I also gave her half a liter fluid bolus and I encouraged the patient to drink more fluids at home. I did assessment counselor her on diet with a low carb diet and to continue physical therapy for weight loss this would improve her immune system for further UTIs. Discussed all this with nurse Rena Slade in the room. Also we will make her an appointment with Dr. Montelongo nephrology to follow up for her hypertension and the acute renal failure that she had since he was contacted by Dr. Andrew in consult. Patient is tolerating her food well On the date of discharge, the patient was examined: Gen.: No acute distress, alert, nontoxic Heart: Regular rate and rhythm, no murmurs, clicks, gallops, or rubs Lungs: Clear to auscultation bilaterally, breathing is nonlabored Abdomen/GI: Normal tones on auscultation, soft, nontender, nondistended Musculoskeletal/extremities: No clubbing, cyanosis, or edema Vitals reviewed and are listed below Vital Signs (24 hrs) 09/20/18 11:29 09/20/18 16:23 09/20/18 19:56 Temperature 96.8 F 97 F 97.3 F Pulse Rate Apical Pulse Rate Pulse Oximeter 70 67 62 Respiratory Rate 20 22 20 Blood Pressure Left Arm 151/73 Blood Pressure Right Arm 126/61 134/63 Pulse Ox 96 92 95 09/21/18 00:10 09/21/18 03:37 09/21/18 04:46 Temperature 97.7 F 97.9 F Pulse Rate Apical 65 Pulse Rate Pulse Oximeter 65 Respiratory Rate 24 20 Blood Pressure Left Arm Blood Pressure Right Arm 167/70 Pulse Ox 93 96 96 09/21/18 05:00 09/21/18 07:00 09/21/18 09:00 Temperature 97.4 F Pulse Rate Apical 65 Pulse Rate Pulse Oximeter 65 60 Respiratory Rate 20 20 Blood Pressure Left Arm Blood Pressure Right Arm 148/58 Pulse Ox 96 93 Assessment and Plan: 1. As per discharge assessments above 2. Disposition: Home 3. Condition on discharge, stable and improved. 4. Diet: regular diet 5. Activities: resume normal activities 6. Follow-Up: 1. PCP 2. Dr. Montelongo appointment will be made by Rena Yeh which will call the patient for her appointment details since she knows the patient personally if she stated 7. Medications at the Time of Discharge: Home Medications Medication Instructions Recorded Confirmed Type cholecalciferol (vitamin D3) 2,000 2,000 unit PO QDAY #30 cap 06/11/17 09/17/18 History unit capsule atenolol 50 mg tablet 50 mg PO QDAY #90 tab 11/08/17 09/17/18 Rx glipizide 10 mg tablet 10 mg PO BID #180 tab 11/08/17 09/17/18 Rx pravastatin 20 mg tablet 20 mg PO QDAY #90 tab 11/08/17 09/17/18 Rx exenatide ER 2 mg/0.65 mL 2 mg SUBCUT Q7D #12 ea 11/20/17 09/17/18 Rx subcutaneous pen injector sitagliptin 50 mg-metformin 1,000 1 tab PO BID #180 tab 11/20/17 09/17/18 Rx mg tablet levothyroxine 100 mcg tablet 100 mcg PO QD #90 tab 02/05/18 09/17/18 Rx oxybutynin chloride 5 mg tablet 10 mg PO BID PRN #360 tab 02/05/18 09/17/18 Rx Amlodipine Besylate [Norvasc] 10 mg PO DAILY #30 tab 09/21/18 Rx Amoxicill/Clav 875/125mg 1 tab PO BID #14 tab 09/21/18 Rx [Augmentin 875/125mg] hydrALAZINE Tab [Apresoline Tab] 10 mg PO TID #90 tab 09/21/18 Rx 8. Time, care, counseling and coordination of care for this discharge is greater than 30 minutes. Exam - Vitals Vital Signs: Vital Signs Temperature 97.4 F Temperature Source Temporal Artery Scan Pulse Rate [Apical] 65 Pulse Rate [Pulse Oximeter] 60 Pulse Rate 70 Respiratory Rate 20 Blood Pressure [Right Arm] 148/58 Blood Pressure [Left Radial 186/70 Artery] Blood Pressure [Left Arm] 151/73 Blood Pressure 165/117 Pulse Ox 93 Oxygen Flow Rate 2 Oxygen Delivery Method Bi-PAP Height 5 ft 9 in Weight 360 lb Patient Problems - Patient Problem List (1) Urinary tract infection Current Visit: Yes Status: Acute Code(s): N39.0 - Urinary tract infection, site not specified Qualifiers: Urinary tract infection type: acute cystitis Hematuria presence: with hematuria Qualified Code(s): N30.01 - Acute cystitis with hematuria Category: Medical (2) Benign hypertension Current Visit: Yes Status: Chronic Comment: BP 158/90 today Category: Medical (3) Hyperlipidemia Current Visit: Yes Status: Chronic Onset Date: 05/05/14 Code(s): E78.5 - Hyperlipidemia, unspecified Qualifiers: Category: Medical (4) Sleep apnea Current Visit: Yes Status: Chronic Onset Date: 05/05/14 Comment: Needs renewal of CPAP and oxygen 3L at night. Has been doing well with it. Code(s): G47.30 - Sleep apnea, unspecified Qualifiers: Category: Medical (5) Urinary incontinence, mixed Current Visit: Yes Status: Chronic Comment: Functional, urgency, stress. Gross wetness improved with oxybutinin but she would like to change to ER formul ation Code(s): N39.46 - Mixed incontinence Category: Medical (6) Acute renal failure Current Visit: Yes Status: Acute Code(s): N17.9 - Acute kidney failure, unspecified Qualifiers: Acute renal failure type: unspecified Qualified Code(s): N17.9 - Acute kidney failure, unspecified Category: Medical (7) Diabetes mellitus type II, controlled Current Visit: Yes Status: Acute Code(s): E11.9 - Type 2 diabetes mellitus without complications Qualifiers: Diabetes mellitus ocean transportation intermediary insulin use: without ocean transportation intermediary use Diabetes mellitus complication status: with ophthalmic complications Diabetes mellitus complication detail: with diabetic retinopathy Diabetic retinopathy severity: with unspecified retinopathy severity Diabetes mellitus macular edema: macular edema presence unspecified Laterality: unspecified laterality Qualified Code(s): E11.319 - Type 2 diabetes mellitus with unspecified diabetic retinopathy without macular edema Category: Medical (8) Morbid obesity Current Visit: Yes Status: Acute Code(s): E66.01 - Morbid (severe) obesity due to excess calories Category: Medical (9) History of nephrectomy Current Visit: Yes Status: Acute Code(s): Z90.5 - Acquired absence of kidney Category: Surgical (10) Altered mental status Current Visit: Yes Status: Acute Code(s): R41.82 - Altered mental status, unspecified Qualifiers: Altered mental status type: disorientation Qualified Code(s): R41.0 - Disorientation, unspecified Category: Medical
--- NOTE | 2018-09-21 11:10 | PT.PROG ---
Progress Note Progress Note: S. pt felt nauseated this morning. She agreed to therapy. O. pt was able to transfer herself into her w/c with stand by assist. One tech holding chair as brakes are unpredictable. She came down to the therapy gym and performed ther ex including marches, long arc quads, ball squeezes, red t band for all upper extremity strengthening, round the clocks, chair ups for tricep strengthening. Ball squeezes with upper ext. UBE. A. pt did well once she was able to get out of bed. She did not want to do therapy but did after some convincing. Transfers are unstable and hard to watch but pt insists on hands off while she does them. P. cont POC Yessica [employer] CERTIFIED PHARMACIST ASSISTANT
--- NOTE | 2018-09-22 09:57 | OTI REPORT ---
Thank you for the referral of Lela Sweet. She was seen on 09/19/18 for an occupational therapy inpatient evaluation secondary to weakness and falls. SUBJECTIVE: The patient is a 73-year-old female. The patient's reports that she was confused [place] evening and she was more confused on Saturday. She was brought to the hospital around 11:00 due to confusion and she was later diagnosed with a UTI, so she has been struggling with some weakness and confusion. At prior level of function, the patient performed functional mobility with use of a wheelchair around her home; she was able to self propel. She completed stand pivot transfers independently from surfaces to her wheelchair. The patient does have a modified home to include wheelchair ramps and a roll in shower area. The patient reports that at prior level of function she was able to dress herself, shower herself, and perform transfers herself. She reports she did have some assistance with hub inventory specialist. The patient does have a history of weakness and staying in the group home after a kidney removal surgery. PAST MEDICAL HISTORY: Past medical history can be found in the patient's medical record. OBJECTIVE FINDINGS: Cognition: The patient continues to struggle with confusion per her report. She does have some difficulty following one step commands at this time. Bed mobility: The patient demonstrated the ability to move from supine to sitting edge of bed with stand by assistance. Her sitting balance is fair. The patient was able to reposition herself back into bed with contact guard assist. Transfers: The patient demonstrated the ability to move from edge of bed to wheelchair with stand pivot transfer and minimal assistance. The patient does have contracted knees and is unable to stand independently. She does not use a walker or any assistive device for transfers. The patient then transferred back to the bed with minimal assistance. Range of motion: Upper extremity range of motion is within functional limits for the shoulder, elbow, hand, and wrist bilaterally. Strength: Upper extremity strength is 4/5 for the shoulder, elbow, hand, and wrist bilaterally. Vision: The patient did have some difficulties with vision today. Upon putting on her glasses, she reported that she was having difficulty seeing. Vision was screened and the patient did have difficulty seeing out of the left eye when the right eye was covered and was having difficulty with peripheral vision to the left. All other facial findings were within functional limits. Nursing was notified and they reported that they will be doing another screening shortly. ASSESSMENT: The patient's rehab potential is fair. Problem List: Decreased functional mobility Decreased strength Decreased activity tolerance Decreased ability to complete ADLs Decreased cognition Short-Term Goals: To be met by discharge from inpatient: Patient may participate in the use of a cognitive screening to determine her current level of function. Patient will increase bilateral upper extremity strength by one manual muscle grade. Patient will complete all functional transfers to her wheelchair with stand pivot transfer with stand by assistance only with no losses of balance. Patient will increase standing activity tolerance and balance to stand x3 minutes before requiring a rest break. Long-Term Goals: To be met following discharge from inpatient: Patient may be seen by outpatient physical therapy. Patient will return home to prior level of function once her symptoms related to UTI are cleared. TREATMENT PLAN: Patient will be seen B.I.D during the week and one time per day over the weekend as an inpatient to address the above goals and objectives. INITIAL TREATMENT: Treatment today consisted of the initial evaluation only. CLAY
--- NOTE | 2018-09-22 10:41 | PTI REPORT ---
Thank you for the referral of Lela Sweet. She was seen on 09/19/18 for an inpatient evaluation secondary to a UTI. SUBJECTIVE: The patient is a 73-year-old female. At the time of the evaluation the patient's was present. He states due to increased confusion, EMS personnel were called on 09/17/2018. She was brought to the hospital where she was diagnosed with a UTI and subsequently admitted to the hospital. He states that he still feels like she is confused but has gotten considerably better over the past day. The patient states her mobility is not very good and hasn't been for quite some time. She primarily uses her personal wheelchair to get around in her home and has not been able to walk for approximately one year, but states she is able to do everything on her own. PAST MEDICAL HISTORY: Past medical history can be found in the patient's medical record. OBJECTIVE FINDINGS: Pain: The patient denies any pain. Cognition: The patient was only able to follow a one step command accurately and would often times get confused with two step commands. Bed mobility: The patient was able to perform bed mobility from supine to edge of bed with verbal cues for safety awareness due to impulsivity. The patient was able to sit edge of bed unsupported for greater than 5 minutes without difficulty, indicating good core strength and control. Range of motion: The patient's bilateral lower extremity range of motion is within functional limits with bilateral knee contractures due to her past medical history. Strength: Bilateral lower extremity strength is at best 3+/5. Ambulation: She is unable to stand and has not been standing for several months if not a year, let alone being ambulatory. Transfers: The patient was able to perform a stand pivot transfer with stand by assistance x2 and gait belt from the bed to her own personal wheelchair and back again. Vision: It was discovered at the time of the evaluation that the patient had several repeated comments of difficulty seeing out of her left eye with and without her glasses. While covering her left eye, the patient was able to see clearly out of her right crossing midline in all planes; however, when covering her right eye, she was hardly able to see at all. Due to concerns, nursing was notified in regards to this. ASSESSMENT: Problem List: Decreased safety awareness due to confusion and impulsivity Decreased safety with mobility Physical Therapy Goals: To be met by discharge from inpatient: Patient will be able to perform all transfers and bed mobility safely with stand by assistance only. TREATMENT PLAN: Patient will be seen B.I.D during the week and one time per day over the weekend as an inpatient to address the above goals and objectives. INITIAL TREATMENT: Treatment today consisted of the initial evaluation only. CLAY
== END 2018-09-21 10:56 | disposition home or self-care (01) | DRG 683 ==
LOC: ER 23:46 → MED/SURG 09-18 03:28
PROVIDERS: ADMIT Family Medicine; ATTEND Family Medicine